=== PATIENT | female | born 1935 | race African-American/Black ===

== ENCOUNTER 2018-07-18 10:29 | Inpatient (IN) | payer MEDICAID, MEDICARE, OTHER ==
[~2018-07-18] VITALS: Ht 157.5 cm; Wt 40.4 kg
[2018-07-18 11:51] LABS: BASOPHILS % 0.9 % (0.0-2.0); EOSINOPHILS % 0.7 % (0.0-5.0); HEMOGLOBIN. 13.9 g/dL (12.0-16.0); LYMPHOCYTES % 47.4 % (20.0-50.0); MEAN CORPUSCULAR HEMOGLOBIN 31.8 pg (28.0-32.0); MEAN CORPUSCULAR VOLUME 93.9 fL (81.0-99.0); MEAN PLATELET VOLUME 7.6 fl (7.4-10.4); MONOCYTES % 8.3 % (2.0-8.0); NEUTROPHILS % 42.7 % (40.0-76.0); PLATELET 241 x1000/uL (130-400); RED BLOOD CELL COUNT 4.37 mill/uL (4.2-5.4); RED CELL DISTRIBUTION WIDTH 14.3 % (11.6-14.6)
[2018-07-18 11:54] LABS: CLARITY URINE CLEAR (CLEAR); COLOR URINE YELLOW (YELLOW); KETONES URINE NEGATIVE (NEGATIVE); LEUKOCYTE ESTERASE URINE NEGATIVE (NEGATIVE); NITRITE URINE NEGATIVE (NEGATIVE); OCCULT BLOOD URINE NEGATIVE (NEGATIVE); PROTEIN URINE NEGATIVE (NEGATIVE); SPECIFIC GRAVITY URINE 1.005 (1.005-1.030); UROBILINOGEN URINE 0.2 E.U./dL (0.2-1.0)
[2018-07-18 11:58] LABS: CHLORIDE 108 mEq/L (98-107)
[2018-07-18] MEDS ORDERED: ACETAMINOPHEN 325MG TABLET PO ONE (12:30)
[2018-07-18] MEDS ORDERED: LORAZEPAM 2MG/ML CPJ IV ONE ×2 (12:30→13:00)
[2018-07-18] MEDS ORDERED: SODIUM CHLORIDE 0.9% 1,000 ML IV ONE (14:15)
[2018-07-18] MEDS ORDERED: DIPHENHYDRAMINE 50MG/ML VIAL IV PRN (16:45)
[2018-07-18] MEDS ORDERED: ONDANSETRON HCL 4MG/2ML INJ IV PRN (16:45)
[2018-07-18] MEDS ORDERED: ACETAMINOPHEN 325MG TABLET PO PRN (16:45)
[2018-07-18] MEDS ORDERED: HYDROCODONE/ACETAMINOPHEN 5/325MG TABLET PO PRN (16:45)
[2018-07-18 17:37] LABS: PHOSPHORUS 2.4 mg/dL (2.5-4.9)
[2018-07-18 23:50] VITALS: BP 146/80
[2018-07-18 23:52] LABS: CREATINE KINASE 475 IU/L (26-192)
[2018-07-19] MEDS ORDERED: COR25 PO (03:29)
[2018-07-19] MEDS ORDERED: DONE5TAB33 PO (03:29)
[2018-07-19] MEDS ORDERED: SACU1TAB4 PO (03:29)
[2018-07-19] MEDS ORDERED: ATOR20TA PO (03:29)
[2018-07-19] MEDS ORDERED: FURO40TA5 PO (03:29)
[2018-07-19] MEDS ORDERED: BENA20TA77 GT (03:29)
[2018-07-19 03:55] VITALS: BP 148/80
[2018-07-19 04:00] VITALS: BP 95/61
[2018-07-19 08:00] VITALS: BP 118/67
[2018-07-19] MEDS ORDERED: ENOXAPARIN 40MG/0.4ML SYR SUBCUT SCH (09:00)
[2018-07-19] MEDS: ENOXAPARIN 30MG/0.3ML SYR SUBCUT SCH (09:19)
[2018-07-19 11:16] LABS: BASOPHILS % 0.5 % (0.0-2.0); EOSINOPHILS % 1.1 % (0.0-5.0); HEMATOCRIT. 36.9 % (36.0-48.0); HEMOGLOBIN. 12.5 g/dL (12.0-16.0); LYMPHOCYTES % 37.5 % (20.0-50.0); MEAN CORPUSCULAR VOLUME 94.6 fL (81.0-99.0); MEAN PLATELET VOLUME 7.8 fl (7.4-10.4); MONOCYTES % 7.1 % (2.0-8.0); NEUTROPHILS % 53.8 % (40.0-76.0); PLATELET 202 x1000/uL (130-400)
[2018-07-19 11:29] LABS: CHLORIDE 109 mEq/L (98-107)
[2018-07-19 11:39] LABS: LDL CHOLESTEROL 83 mg/dL (5-100)
[2018-07-19 11:40] LABS: CREATINE KINASE 433 IU/L (26-192)
[2018-07-19 11:41] LABS: HDL CHOLESTEROL 83 mg/dL (40-59)
[2018-07-19 12:00] VITALS: BP 118/66
[2018-07-19 20:00] VITALS: BP 109/62
[2018-07-20] VITALS: BP 106/80
[2018-07-20 04:00] VITALS: BP 125/70
[2018-07-20 08:00] VITALS: BP 133/79
[2018-07-20] MEDS: ENOXAPARIN 30MG/0.3ML SYR SUBCUT SCH (11:52)
[2018-07-20 12:00] VITALS: BP 128/69
[2018-07-20 16:00] VITALS: BP 128/74
[2018-07-20 20:09] VITALS: BP 150/80
[2018-07-21] VITALS: BP 149/60
[2018-07-21 04:00] VITALS: BP 119/64
[2018-07-21 06:52] LABS: CHLORIDE 112 mEq/L (98-107)
[2018-07-21 07:23] LABS: BASOPHILS % 0.3 % (0.0-2.0); EOSINOPHILS % 0.6 % (0.0-5.0); HEMATOCRIT. 36.1 % (36.0-48.0); HEMOGLOBIN. 12.2 g/dL (12.0-16.0); LYMPHOCYTES % 52.9 % (20.0-50.0); MEAN CORPUSCULAR HEMOGLOBIN 31.9 pg (28.0-32.0); MEAN CORPUSCULAR VOLUME 94.2 fL (81.0-99.0); MEAN PLATELET VOLUME 7.9 fl (7.4-10.4); MONOCYTES % 7.7 % (2.0-8.0); NEUTROPHILS % 38.5 % (40.0-76.0); PLATELET 200 x1000/uL (130-400); RED BLOOD CELL COUNT 3.83 mill/uL (4.2-5.4); RED CELL DISTRIBUTION WIDTH 13.9 % (11.6-14.6)
[2018-07-21 08:00] VITALS: BP 178/99
[2018-07-21] MEDS ORDERED: BENAZEPRIL 10MG TABLET PO SCH (10:00)
[2018-07-21] MEDS ORDERED: CARVEDILOL 25MG TABLET PO SCH (10:00)
[2018-07-21] MEDS ORDERED: FUROSEMIDE 40MG TABLET PO SCH (10:00)
[2018-07-21] MEDS: ENOXAPARIN 30MG/0.3ML SYR SUBCUT SCH (10:44)
[2018-07-21 12:00] VITALS: BP 118/63
[2018-07-21] MEDS: SODIUM CHLORIDE 0.9% 1,000 ML IV SCH ×2 (14:32)
[2018-07-21 15:50] VITALS: BP 118/63
[2018-07-21 16:42] VITALS: BP 112/71
[2018-07-21] MEDS ORDERED: DONEPEZIL HCL 5MG TABLET PO SCH (21:00)
[2018-07-21] MEDS ORDERED: ATORVASTATIN CALCIUM 20MG TABLET PO SCH (21:00)
== END 2018-07-21 17:30 | disposition home or self-care (01) | DRG 71 ==
LOC: ER 10:29 → 8WST 15:01 → EDBEDREQ 15:06 → ENRESERV 23:01
PROVIDERS: ADMIT Internal Medicine; ATTEND Internal Medicine
DX: G93.40 Encephalopathy, unspecified (principal); E87.2 Acidosis; F03.90 Unspecified dementia, unspecified severity, without behavioral disturbance, psychotic disturbance, mood disturbance, and anxiety; I10 Essential (primary) hypertension; R11.0 Nausea; Z79.899 Other long term (current) drug therapy
CPT/HCPCS: 36415; 71045; 74176; 80048; 80061; 82550; 83036; 83605; 83735; 83880; 84100; 84443; 84484; 93005; 93970; 96361; 96374; 97116; 97162; 97166; 97530; 99285; J1650; J2060; J7030

== ENCOUNTER 2018-12-08 08:57 | Emergency (ER) | payer MEDICARE, OTHER ==
[~2018-12-08] VITALS: Ht 157.5 cm; Wt 48.0 kg
[~2018-12-08 08:57] MED LIST: ATOR20TA PO; BENA20TA77 GT; COR25 PO; DONE5TAB33 PO; FURO40TA5 PO; SACU1TAB4 PO
[2018-12-08] MEDS ORDERED: ACETAMINOPHEN 325MG TABLET PO ONE (10:00)
[2018-12-08 10:40] LABS: BASOPHILS % 0.9 % (0.0-2.0); EOSINOPHILS % 1.9 % (0.0-5.0); HEMATOCRIT. 38.3 % (36.0-48.0); LYMPHOCYTES % 49.4 % (20.0-50.0); MEAN CORPUSCULAR HEMOGLOBIN 31.8 pg (28.0-32.0); MEAN CORPUSCULAR VOLUME 93.6 fL (81.0-99.0); MEAN PLATELET VOLUME 7.9 fl (7.4-10.4); MONOCYTES % 9.8 % (2.0-8.0); PLATELET 183 x1000/uL (130-400); RED BLOOD CELL COUNT 4.09 mill/uL (4.2-5.4)
[2018-12-08 10:46] LABS: CHLORIDE 106 mEq/L (98-107)
[2018-12-08] MEDS ORDERED: IBUPROFEN 400MG TABLET PO ONE (11:15)
[2018-12-08 14:20] VITALS: BP 143/99
== END 2018-12-08 14:20 | disposition home or self-care (01) ==
LOC: ER 08:57
DX: R60.0 Localized edema (principal); M79.605 Pain in left leg; D72.819 Decreased white blood cell count, unspecified; N28.9 Disorder of kidney and ureter, unspecified; I10 Essential (primary) hypertension; F03.90 Unspecified dementia, unspecified severity, without behavioral disturbance, psychotic disturbance, mood disturbance, and anxiety
CPT/HCPCS: 36415; 71045; 83880; 93005; 93970; 99284

== ENCOUNTER 2019-06-04 09:05 | Emergency (ER) | payer MEDICARE ==
[~2019-06-04] VITALS: Ht 157.5 cm; Wt 50.0 kg
[2019-06-04 10:22] LABS: CHLORIDE 110 mEq/L (98-107)
[2019-06-04 10:27] LABS: BASOPHILS % 0.8 % (0.0-2.0); EOSINOPHILS % 0.8 % (0.0-5.0); HEMATOCRIT. 39.8 % (36.0-48.0); HEMOGLOBIN. 13.6 g/dL (12.0-16.0); LYMPHOCYTES % 46.5 % (20.0-50.0); MEAN CORPUSCULAR HEMOGLOBIN 31.5 pg (28.0-32.0); MEAN CORPUSCULAR VOLUME 92.4 fL (81.0-99.0); MONOCYTES % 7.9 % (2.0-8.0); PLATELET 236 x1000/uL (130-400); RED BLOOD CELL COUNT 4.31 mill/uL (4.2-5.4)
[2019-06-04] MEDS ORDERED: ACETAMINOPHEN 325MG TABLET PO ONE (11:30)
[2019-06-04] MEDS ORDERED: HALOPERIDOL LACTATE 5MG/ML VIAL IM ONE (13:45)
[2019-06-04 16:47] VITALS: BP 137/82
== END 2019-06-04 16:35 | disposition home or self-care (01) ==
LOC: ER 09:07
DX: M79.604 Pain in right leg (principal); R60.9 Edema, unspecified; I10 Essential (primary) hypertension; W18.30XA Fall on same level, unspecified, initial encounter; Y93.9 Activity, unspecified; Y92.89 Other specified places as the place of occurrence of the external cause; Y99.8 Other external cause status; Z79.899 Other long term (current) drug therapy
CPT/HCPCS: 36415; 71045; 73590; 80053; 84484; 85025; 93005; 99284

== ENCOUNTER 2019-09-13 20:22 | Inpatient (IN) | payer MEDICARE ==
[~2019-09-13] VITALS: Ht 137.2 cm; Wt 64.0 kg
[2019-09-13] MEDS ORDERED: SODIUM CHLORIDE 0.9% 1,000 ML IV ONE (20:51)
[2019-09-13 21:58] LABS: BASOPHILS % 0.3 % (0.0-2.0); EOSINOPHILS % 0.2 % (0.0-5.0); HEMATOCRIT. 38.4 % (36.0-48.0); HEMOGLOBIN. 12.8 g/dL (12.0-16.0); LYMPHOCYTES % 20.3 % (20.0-50.0); MEAN CORPUSCULAR VOLUME 96.2 fL (81.0-99.0); MEAN PLATELET VOLUME 7.7 fl (7.4-10.4); MONOCYTES % 7.7 % (2.0-8.0); NEUTROPHILS % 71.5 % (40.0-76.0); PLATELET 198 x1000/uL (130-400); RED BLOOD CELL COUNT 3.99 mill/uL (4.2-5.4); RED CELL DISTRIBUTION WIDTH 14.3 % (11.6-14.6)
[2019-09-13 22:05] LABS: CHLORIDE 110 mEq/L (98-107)
[2019-09-13 22:35] LABS: CLARITY URINE CLEAR (CLEAR); COLOR URINE YELLOW (YELLOW); KETONES URINE NEGATIVE (NEGATIVE); LEUKOCYTE ESTERASE URINE NEGATIVE (NEGATIVE); NITRITE URINE NEGATIVE (NEGATIVE); OCCULT BLOOD URINE NEGATIVE (NEGATIVE); PROTEIN URINE NEGATIVE (NEGATIVE); SPECIFIC GRAVITY URINE 1.011 (1.005-1.030)
[2019-09-14] VITALS (7 sets, daily range): BP systolic 144–166; BP diastolic 75–93
[2019-09-14] MEDS ORDERED: MORPHINE SULFATE 2 MG/ML CPJ (NOT FOR IM USE) IV ONE (00:30)
[2019-09-14] MEDS: LORAZEPAM 2MG/ML CPJ IV PRN ×2 (05:47→22:57)
[2019-09-14] MEDS: CARVEDILOL 12.5MG TABLET PO SCH (05:58)
[2019-09-14] MEDS: AMLODIPINE 5MG TABLET PO SCH ×2 (11:23→21:05)
[2019-09-14] MEDS: ENOXAPARIN 30MG/0.3ML SYR SUBCUT SCH (16:33)
[2019-09-15] VITALS (9 sets, daily range): BP systolic 112–173; BP diastolic 56–114
[2019-09-15] MEDS ORDERED: METO25TA6 MT (07:44)
[2019-09-15] MEDS ORDERED: WARF2.5T47 MT (07:44)
[2019-09-15] MEDS ORDERED: CHOL500063 MT (07:44)
[2019-09-15] MEDS ORDERED: DIGO125T MT (07:44)
[2019-09-15] MEDS ORDERED: MIRT15TA6 MT (07:44)
[2019-09-15] MEDS ORDERED: LEVO75TA7 MT (07:44)
[2019-09-15] MEDS ORDERED: LOSA25TA26 MT (07:44)
[2019-09-15] MEDS ORDERED: POTA20TA82 MT (07:44)
[2019-09-15] MEDS ORDERED: PRAV40TA58 MT (07:44)
[2019-09-15] MEDS ORDERED: DILT360T13 MT (07:44)
[2019-09-15 07:59] LABS: VITAMIN B12 SERUM 482 pg/mL (211-911)
[2019-09-15] MEDS: CARVEDILOL 12.5MG TABLET PO SCH (09:12)
[2019-09-15] MEDS: AMLODIPINE 5MG TABLET PO SCH (09:12)
[2019-09-15] MEDS: DEXT 5%/0.45% NACL 1000ML 1,000 ML IV SCH (13:52)
[2019-09-15] MEDS: ENOXAPARIN 30MG/0.3ML SYR SUBCUT SCH (14:33)
[2019-09-15 15:50] LABS: BASOPHILS % 0.3 % (0.0-2.0); EOSINOPHILS % 0.2 % (0.0-5.0); HEMATOCRIT. 37.5 % (36.0-48.0); HEMOGLOBIN. 12.9 g/dL (12.0-16.0); LYMPHOCYTES % 25.8 % (20.0-50.0); MEAN CORPUSCULAR HEMOGLOBIN 32.4 pg (28.0-32.0); MEAN CORPUSCULAR VOLUME 94.6 fL (81.0-99.0); MEAN PLATELET VOLUME 8.2 fl (7.4-10.4); MONOCYTES % 8.2 % (2.0-8.0); NEUTROPHILS % 65.5 % (40.0-76.0); PLATELET 221 x1000/uL (130-400); RED BLOOD CELL COUNT 3.97 mill/uL (4.2-5.4); RED CELL DISTRIBUTION WIDTH 14.2 % (11.6-14.6)
[2019-09-15 15:58] LABS: CHLORIDE 107 mEq/L (98-107)
[2019-09-15] MEDS: CARVEDILOL 6.25 MG TABLET PO SCH (21:33)
[2019-09-16] VITALS (7 sets, daily range): BP systolic 128–159; BP diastolic 64–91
[2019-09-16] MEDS: DEXT 5%/0.45% NACL 1000ML 1,000 ML IV SCH (09:41)
[2019-09-16] MEDS: CARVEDILOL 6.25 MG TABLET PO SCH ×2 (09:42→20:52)
[2019-09-16] MEDS: ENOXAPARIN 30MG/0.3ML SYR SUBCUT SCH (15:12)
[2019-09-17] VITALS (7 sets, daily range): BP systolic 106–167; BP diastolic 63–91
[2019-09-17] MEDS: DEXT 5%/0.45% NACL 1000ML 1,000 ML IV SCH (05:02)
[2019-09-17] MEDS: CARVEDILOL 6.25 MG TABLET PO SCH ×2 (09:21→22:18)
[2019-09-17] MEDS: SULFACETAMIDE SODIUM 10% OPHTH DROPS 15ML LEFTEYE SCH ×2 (17:19→21:00)
[2019-09-17] MEDS: PANTOPRAZOLE SODIUM 40 MG/VIAL IV SCH (22:17)
[2019-09-17] MEDS: ACETAMINOPHEN 325MG TABLET PO PRN (22:38)
[2019-09-18] VITALS (8 sets, daily range): BP systolic 127–159; BP diastolic 69–92
[2019-09-18] MEDS: DEXT 5%/0.45% NACL 1000ML 1,000 ML IV SCH ×2 (02:09→21:15)
[2019-09-18 07:22] LABS: BASOPHILS % 0.4 % (0.0-2.0); EOSINOPHILS % 0.8 % (0.0-5.0); HEMATOCRIT. 41.2 % (36.0-48.0); HEMOGLOBIN. 14.1 g/dL (12.0-16.0); LYMPHOCYTES % 32.9 % (20.0-50.0); MEAN CORPUSCULAR HEMOGLOBIN 32.6 pg (28.0-32.0); MEAN CORPUSCULAR VOLUME 94.8 fL (81.0-99.0); MEAN PLATELET VOLUME 8.2 fl (7.4-10.4); MONOCYTES % 11.3 % (2.0-8.0); NEUTROPHILS % 54.6 % (40.0-76.0); PLATELET 213 x1000/uL (130-400); RED BLOOD CELL COUNT 4.34 mill/uL (4.2-5.4); RED CELL DISTRIBUTION WIDTH 13.8 % (11.6-14.6)
[2019-09-18 07:28] LABS: PARTIAL THROMBOPLASTIN TIME 28.9 sec (23.4-31.0); PROTHROMBIN TIME 10.6 sec (9.6-11.0)
[2019-09-18 07:38] LABS: CHLORIDE 105 mEq/L (98-107)
[2019-09-18] MEDS ORDERED: CEFAZOLIN 1000MG PREMIX 50 ML IV SCH (08:00)
[2019-09-18] MEDS: CARVEDILOL 6.25 MG TABLET PO SCH ×2 (09:00→21:05)
[2019-09-18] MEDS: SULFACETAMIDE SODIUM 10% OPHTH DROPS 15ML LEFTEYE SCH ×4 (09:25→21:15)
[2019-09-18] MEDS: PANTOPRAZOLE SODIUM 40 MG/VIAL IV SCH ×2 (09:25→21:06)
[2019-09-18] MEDS: LISINOPRIL 5MG TABLET PO SCH (10:30)
[2019-09-18] MEDS ORDERED: MIDAZOLAM HCL 5 MG/5 ML VIAL ONE (10:55)
[2019-09-18] MEDS ORDERED: FENTANYL CITRATE/PF 50MCG/ML 2ML VIAL ONE (10:55)
[2019-09-18] MEDS ORDERED: MIDAZOLAM HCL 2 MG/2 ML VIAL IV PRN (11:05)
[2019-09-19] VITALS (9 sets, daily range): BP systolic 105–131; BP diastolic 62–78
[2019-09-19] MEDS: ACETAMINOPHEN 325MG TABLET PO PRN (04:55)
[2019-09-19] MEDS: CARVEDILOL 6.25 MG TABLET PO SCH (08:43)
[2019-09-19] MEDS: SULFACETAMIDE SODIUM 10% OPHTH DROPS 15ML LEFTEYE SCH ×4 (08:44→21:28)
[2019-09-19] MEDS: LISINOPRIL 5MG TABLET PO SCH (08:44)
[2019-09-19] MEDS ORDERED: COR6 PO (11:32)
[2019-09-19] MEDS ORDERED: LOSA25TA26 MT (11:32)
[2019-09-19] MEDS: ENOXAPARIN 30MG/0.3ML SYR SUBCUT SCH (15:29)
[2019-09-19] MEDS: DEXT 5%/0.45% NACL 1000ML 1,000 ML IV SCH (16:01)
[2019-09-19 17:02] LABS: BASOPHILS % 0.7 % (0.0-2.0); EOSINOPHILS % 0.4 % (0.0-5.0); HEMATOCRIT. 36.5 % (36.0-48.0); HEMOGLOBIN. 12.4 g/dL (12.0-16.0); LYMPHOCYTES % 20.5 % (20.0-50.0); MEAN CORPUSCULAR HEMOGLOBIN 32.4 pg (28.0-32.0); MEAN CORPUSCULAR VOLUME 95.1 fL (81.0-99.0); MEAN PLATELET VOLUME 7.8 fl (7.4-10.4); NEUTROPHILS % 70.4 % (40.0-76.0); PLATELET 232 x1000/uL (130-400); RED BLOOD CELL COUNT 3.83 mill/uL (4.2-5.4); RED CELL DISTRIBUTION WIDTH 13.6 % (11.6-14.6)
[2019-09-19 17:10] LABS: CHLORIDE 106 mEq/L (98-107)
[2019-09-19] MEDS: MORPHINE SULFATE 2 MG/ML CPJ (NOT FOR IM USE) IV PRN (17:38)
[2019-09-19] MEDS ORDERED: POTASSIUM CHLORIDE 20MEQ/PACKET PO NR (18:30)
[2019-09-19] MEDS: LORAZEPAM 2MG/ML CPJ IV PRN (18:46)
[2019-09-19] MEDS: CARVEDILOL 3.125 MG TABLET PO SCH (21:00)
[2019-09-19] MEDS: CEFTRIAXONE 1 G PREMIX 50 ML IV SCH (21:46)
[2019-09-20] VITALS (8 sets, daily range): BP systolic 99–163; BP diastolic 64–95
[2019-09-20] MEDS: MORPHINE SULFATE 2 MG/ML CPJ (NOT FOR IM USE) IV PRN ×3 (02:22→15:56)
[2019-09-20] MEDS: CARVEDILOL 3.125 MG TABLET PO SCH ×2 (08:55→20:41)
[2019-09-20] MEDS: LISINOPRIL 5MG TABLET PO SCH (08:57)
[2019-09-20] MEDS: SULFACETAMIDE SODIUM 10% OPHTH DROPS 15ML LEFTEYE SCH ×4 (09:20→20:11)
[2019-09-20] MEDS: DEXT 5%/0.45% NACL 1000ML 1,000 ML IV SCH (12:58)
[2019-09-20] MEDS: ENOXAPARIN 30MG/0.3ML SYR SUBCUT SCH (14:05)
[2019-09-20 19:46] LABS: CLARITY URINE CLEAR (CLEAR); COLOR URINE YELLOW (YELLOW); KETONES URINE NEGATIVE (NEGATIVE); LEUKOCYTE ESTERASE URINE NEGATIVE (NEGATIVE); NITRITE URINE NEGATIVE (NEGATIVE); OCCULT BLOOD URINE NEGATIVE (NEGATIVE); PROTEIN URINE NEGATIVE (NEGATIVE); SPECIFIC GRAVITY URINE 1.008 (1.005-1.030); UROBILINOGEN URINE 0.2 E.U./dL (0.2-1.0)
[2019-09-20] MEDS: LORAZEPAM 2MG/ML CPJ IV PRN (20:11)
[2019-09-20] MEDS: CEFTRIAXONE 1 G PREMIX 50 ML IV SCH (20:11)
[2019-09-21] VITALS: BP 144/73
[2019-09-21 04:00] VITALS: BP 138/73
[2019-09-21] MEDS: MORPHINE SULFATE 2 MG/ML CPJ (NOT FOR IM USE) IV PRN ×2 (05:59→13:48)
[2019-09-21 08:00] VITALS: BP 134/71
[2019-09-21] MEDS: SULFACETAMIDE SODIUM 10% OPHTH DROPS 15ML LEFTEYE SCH ×4 (08:44→20:04)
[2019-09-21] MEDS: CARVEDILOL 3.125 MG TABLET PO SCH ×2 (08:44→20:02)
[2019-09-21] MEDS: DEXT 5%/0.45% NACL 1000ML 1,000 ML IV SCH (08:45)
[2019-09-21] MEDS: LISINOPRIL 5MG TABLET PO SCH (08:45)
[2019-09-21 11:55] VITALS: BP 121/73
[2019-09-21] MEDS: ENOXAPARIN 30MG/0.3ML SYR SUBCUT SCH (14:10)
[2019-09-21 16:00] VITALS: BP 151/79
[2019-09-21 20:00] VITALS: BP 152/88
[2019-09-21] MEDS: LORAZEPAM 2MG/ML CPJ IV PRN (20:02)
[2019-09-21] MEDS: CEFTRIAXONE 1 G PREMIX 50 ML IV SCH (20:02)
[2019-09-22] VITALS: BP 143/80
[2019-09-22 04:00] VITALS: BP 154/90
[2019-09-22] MEDS: MORPHINE SULFATE 2 MG/ML CPJ (NOT FOR IM USE) IV PRN ×2 (04:22→17:13)
[2019-09-22] MEDS: DEXT 5%/0.45% NACL 1000ML 1,000 ML IV SCH (05:34)
[2019-09-22] MEDS: ONDANSETRON HCL 4MG/2ML INJ IV PRN (06:56)
[2019-09-22 08:00] VITALS: BP 119/66
[2019-09-22] MEDS: LISINOPRIL 5MG TABLET PO SCH (08:41)
[2019-09-22] MEDS: SULFACETAMIDE SODIUM 10% OPHTH DROPS 15ML LEFTEYE SCH ×4 (08:41→20:07)
[2019-09-22] MEDS: CARVEDILOL 3.125 MG TABLET PO SCH ×2 (08:42→20:08)
[2019-09-22 11:35] VITALS: BP 123/75
[2019-09-22] MEDS: DOCUSATE SODIUM SUGAR FREE 100MG/10ML UDC NG SCH (13:51)
[2019-09-22] MEDS: ENOXAPARIN 30MG/0.3ML SYR SUBCUT SCH (13:52)
[2019-09-22 16:00] VITALS: BP 124/71
[2019-09-22] MEDS: CEFTRIAXONE 1 G PREMIX 50 ML IV SCH (20:07)
[2019-09-22 20:18] LABS: HEMATOCRIT 37.2 % (36.0-48.0); HEMOGLOBIN 12.9 g/dL (12.0-16.0); MEAN CORPUSCULAR HEMOGLOBIN 32.8 pg (28.0-32.0); MEAN CORPUSCULAR VOLUME 94.3 fL (81.0-99.0); PLATELET 295 x1000/uL (130-400); RED BLOOD CELL COUNT 3.95 mill/uL (4.2-5.4); RED CELL DISTRIBUTION WIDTH 13.4 % (11.6-14.6)
[2019-09-22 20:27] LABS: CHLORIDE 104 mEq/L (98-107)
[2019-09-23] VITALS (8 sets, daily range): BP systolic 98–154; BP diastolic 65–93
[2019-09-23] MEDS: LORAZEPAM 2MG/ML CPJ IV PRN ×3 (00:23→13:24)
[2019-09-23] MEDS: DEXT 5%/0.45% NACL 1000ML 1,000 ML IV SCH ×3 (01:20→20:46)
[2019-09-23] MEDS: SODIUM CHLORIDE 0.9% 1000ML BAG (SEPSIS BOLUS) IV ONE ×2 (02:06→02:23)
[2019-09-23] MEDS: LISINOPRIL 5MG TABLET PO SCH ×2 (09:00→10:12)
[2019-09-23] MEDS: CARVEDILOL 3.125 MG TABLET PO SCH ×3 (09:00→20:24)
[2019-09-23] MEDS: DOCUSATE SODIUM SUGAR FREE 100MG/10ML UDC NG SCH (09:00)
[2019-09-23] MEDS: CEFTRIAXONE 1 G PREMIX 50 ML IV SCH (20:24)
[2019-09-24] VITALS (8 sets, daily range): BP systolic 93–165; BP diastolic 57–91
[2019-09-24] MEDS: MORPHINE SULFATE 2 MG/ML CPJ (NOT FOR IM USE) IV PRN (01:23)
[2019-09-24] MEDS: DEXT 5%/0.45% NACL 1000ML 1,000 ML IV SCH ×2 (07:16→17:50)
[2019-09-24] MEDS: DOCUSATE SODIUM SUGAR FREE 100MG/10ML UDC NG SCH (09:02)
[2019-09-24] MEDS: CARVEDILOL 3.125 MG TABLET PO SCH ×2 (09:02→20:26)
[2019-09-24] MEDS: LISINOPRIL 5MG TABLET PO SCH (09:03)
[2019-09-24] MEDS: PANTOPRAZOLE SODIUM 40 MG/VIAL IV SCH ×2 (12:50→17:12)
[2019-09-24] MEDS: SUCRALFATE 1 G/10 ML UDC GT SCH ×3 (12:50→23:03)
[2019-09-24 16:32] LABS: HEMATOCRIT 29.8 % (36.0-48.0); HEMOGLOBIN 10.3 g/dL (12.0-16.0); MEAN CORPUSCULAR HEMOGLOBIN 32.6 pg (28.0-32.0); MEAN CORPUSCULAR VOLUME 94.1 fL (81.0-99.0); PLATELET 310 x1000/uL (130-400); RED BLOOD CELL COUNT 3.17 mill/uL (4.2-5.4); RED CELL DISTRIBUTION WIDTH 13.8 % (11.6-14.6)
[2019-09-24 17:02] LABS: CHLORIDE 108 mEq/L (98-107)
[2019-09-24] MEDS ORDERED: CLONIDINE 0.1MG TABLET GT PRN (17:30)
[2019-09-24] MEDS: CEFTRIAXONE 1 G PREMIX 50 ML IV SCH (20:25)
[2019-09-24] MEDS ORDERED: MORPHINE SULFATE 2 MG/ML CPJ (NOT FOR IM USE) IV PRN (23:00)
[2019-09-24] MEDS: ONDANSETRON HCL 4MG/2ML INJ IV PRN (23:02)
[2019-09-25] VITALS (8 sets, daily range): BP systolic 93–156; BP diastolic 44–91
[2019-09-25] MEDS: DEXT 5%/0.45% NACL 1000ML 1,000 ML IV SCH ×2 (03:26→13:26)
[2019-09-25] MEDS: LORAZEPAM 2MG/ML CPJ IV PRN (03:53)
[2019-09-25] MEDS: SUCRALFATE 1 G/10 ML UDC GT SCH ×4 (06:09→23:09)
[2019-09-25] MEDS: PANTOPRAZOLE SODIUM 40 MG/VIAL IV SCH ×2 (09:10→17:55)
[2019-09-25] MEDS: DOCUSATE SODIUM SUGAR FREE 100MG/10ML UDC NG SCH (09:10)
[2019-09-25] MEDS: LISINOPRIL 5MG TABLET PO SCH (09:11)
[2019-09-25] MEDS: CARVEDILOL 3.125 MG TABLET PO SCH ×2 (09:12→20:50)
[2019-09-26 02:00] VITALS: BP 132/79
[2019-09-26] MEDS: DEXT 5%/0.45% NACL 1000ML 1,000 ML IV SCH (02:27)
[2019-09-26] MEDS: LORAZEPAM 2MG/ML CPJ IV PRN (02:27)
[2019-09-26 04:00] VITALS: BP 109/54
[2019-09-26] MEDS: SUCRALFATE 1 G/10 ML UDC GT SCH (05:41)
[2019-09-26 08:00] VITALS: BP 113/63
[2019-09-26] MEDS: DOCUSATE SODIUM SUGAR FREE 100MG/10ML UDC NG SCH (09:42)
[2019-09-26] MEDS: PANTOPRAZOLE SODIUM 40 MG/VIAL IV SCH (09:42)
[2019-09-26] MEDS: LISINOPRIL 5MG TABLET PO SCH (09:44)
[2019-09-26] MEDS: CARVEDILOL 3.125 MG TABLET PO SCH (09:44)
[2019-09-26 10:00] VITALS: BP 126/70
[2019-09-26 10:43] VITALS: BP 126/70
[2019-09-26 11:32] VITALS: BP 109/73
== END 2019-09-26 11:45 | disposition home or self-care (01) | DRG 872 ==
LOC: ER 20:22 → 5EST 09-14 01:17 → EDBEDREQ 09-14 01:19 → EDBEDREQDT 09-14 01:19 → EDBEDREQTM 09-14 01:19 → ENRESERV 09-14 10:05
PROVIDERS: ADMIT Internal Medicine; ATTEND Internal Medicine
PROC: 0DH63UZ Insertion of Feeding Device into Stomach, Percutaneous Approach (ICD-10-PCS; principal; 2019-09-18)
PROC: 3E0G76Z Introduction of Nutritional Substance into Upper GI, Via Natural or Artificial Opening (ICD-10-PCS; 2019-09-18)
DX: A41.9 Sepsis, unspecified organism (principal); G93.40 Encephalopathy, unspecified; I42.9 Cardiomyopathy, unspecified; I50.22 Chronic systolic (congestive) heart failure; E44.0 Moderate protein-calorie malnutrition; G90.8 Other disorders of autonomic nervous system; E86.9 Volume depletion, unspecified; E87.5 Hyperkalemia; F03.90 Unspecified dementia, unspecified severity, without behavioral disturbance, psychotic disturbance, mood disturbance, and anxiety; I11.0 Hypertensive heart disease with heart failure; I27.20 Pulmonary hypertension, unspecified; I44.7 Left bundle-branch block, unspecified; R13.10 Dysphagia, unspecified; F01.50 Vascular dementia, unspecified severity, without behavioral disturbance, psychotic disturbance, mood disturbance, and anxiety; E88.09 Other disorders of plasma-protein metabolism, not elsewhere classified; I95.9 Hypotension, unspecified; Z68.34 Body mass index [BMI] 34.0-34.9, adult; Z93.1 Gastrostomy status; Z79.899 Other long term (current) drug therapy
CPT/HCPCS: 36415; 70551; 71045; 74018; 80048; 80053; 81003; 82140; 82607; 82962; 83880; 84145; 84443; 84484; 85025; 85027; 92610; 93005; 93306; 93880; 95816; 97110; 97162; 97530; 97535; 99285; C9113; J0690; J0696; J1650; J2060; J2250; J2270; J2405; J3010; J7030